=== PATIENT | male | born 1995 | race Caucasian/White ===

== ENCOUNTER 2019-02-18 19:52 | Emergency (ER) | payer SELFPAY ==
[~2019-02-18] VITALS: Ht 165.1 cm; Wt 60.5 kg
[2019-02-18 19:57] VITALS: Ht 165.1 cm; Wt 60.5 kg
[2019-02-18] MEDS ORDERED: SOD CHLORIDE 0.9% 1,000 ML IV STA (21:01)
[2019-02-18] MEDS ORDERED: ONDANSETRON 4 MG INJ IV STA (21:01)
[2019-02-18] MEDS ORDERED: HYDROmorphONE 1 MG/ML SYG IV STA (21:01)
[2019-02-18] MEDS ORDERED: HYDROmorphONE 2 MG/ML SYG IV STA (22:18)
[2019-02-18] MEDS ORDERED: IBUP-1542 PO (22:20)
[2019-02-18] MEDS ORDERED: NALO4SPR NS (22:20)
[2019-02-18] MEDS ORDERED: HYDR-3980 PO (22:20)
--- NOTE | 2019-02-18 22:33 | ERD ---
ER Documentation Chief Complaint Chief Complaint SICKLE CELL CRISIS X'S 4 DAYS HPI Patient is a 24-year-old male with sickle cell disease who presents with sickle cell pain. He said that it started 2 to 3 days ago but was worse today. He has chest pain and vomiting which is his usual sickle cell pain. He is visiting from [place]. He said that he usually gets fluids, Dilaudid, and Zofran. Upon review of old medical records this is the patient's first visit to the emergency department. ROS All systems reviewed and are negative except as per history of present illness. Medications Home Meds Active Scripts Naloxone HCl nasal spray (Narcan 4 mg/0.1 mL nasal) 4 Mg [place], 4 MG NS .Q2-3MIN for OPIOID OVERDOSE, #2 SPRAY 0 Refills [place] 0.1 mL into one nostril. 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 Neck: Full range of motion. No meningismus. Resp: Clear to auscultation bilaterally Cardio: Regular rate and rhythm, no murmurs Abd: Soft, non tender, non distended. Normal bowel sounds Skin: No petechiae or rashes Back: No midline or flank tenderness Ext: No cyanosis, or edema Neur: Awake and alert Psych: Normal Mood and Affect Result Diagram: 02/18/19211602/18/192116 Results 24 hrs Laboratory Tests Test 02/18/19 21:17 White Blood Count 4.8 10^3/ul Red Blood Count 4.94 10^6/ul Hemoglobin 11.9 g/dl Hematocrit 35.6 % Mean Corpuscular Volume 72.1 fl Mean Corpuscular Hemoglobin 24.1 pg Mean Corpuscular Hemoglobin Concent 33.4 g/dl Red Cell Distribution Width 17.1 % Platelet Count 156 10^3/UL Mean Platelet Volume 10.8 fl Immature Granulocytes % 0.200 % Neutrophils % 55.5 % Lymphocytes % 32.6 % Monocytes % 8.6 % Eosinophils % 2.3 % Basophils % 0.8 % Nucleated Red Blood Cells % 0.0 /100WBC Immature Granulocytes # 0.010 10^3/ul Neutrophils # 2.7 10^3/ul Lymphocytes # 1.6 10^3/ul Monocytes # 0.4 10^3/ul Eosinophils # 0.1 10^3/ul Basophils # 0.0 10^3/ul Nucleated Red Blood Cells # 0.0 10^3/ul Absolute Reticulocyte Count 0.066 X10^6 Percent Reticulocyte Count 1.3 % Sodium Level 141 mmol/L Potassium Level 4.1 mmol/L Chloride Level 107 mmol/L Carbon Dioxide Level 26 mmol/L Anion Gap 8 Blood Urea Nitrogen 12 mg/dl Creatinine 1.19 mg/dl Est Glomerular Filtrat Rate mL/min > 60 mL/min Glucose Level 89 mg/dl Calcium Level 10.2 mg/dl Current Medications Medications Dose Sig/Radha Start Time Status Last (Trade) Ordered Route PRN Stop Time Admin Dose Reason Admin Sodium 1,000 ml @ Q1H STAT 02/18/19 DC 02/18/19 Chloride 1,000 mls/hr IV 21:01 21:19 02/18/19 22:00 1 mg ONCE STAT 02/18/19 DC 02/18/19 Hydromorphone IV 21: 21:19 HCl 02/18/19 21:08 (Dilaudid) Ondansetron 4 mg ONCE STAT 02/18/19 DC 02/18/19 HCl (Zofran IV 21: 21:19 Inj) 02/18/19 21:08 1 mg ONCE STAT 02/18/19 DC Hydromorphone IV 22:18 HCl 02/18/19 22:20 (Dilaudid) Procedures/MDM EKG read by me: Rate/Rhythm: Regular rate and rhythm at a normal rate Intervals: Normal Impression: No evidence of ischemia or arrhythmia Chest X-ray 1V Interpreted by me: Soft Tissue: No acute abnormalities Bones: No acute abnormalities Mediastinum/Cardiac Silhouette/Lungs: No acute abnormalities Patient is a 24-year-old male with sickle cell disease who presents with acute sickle cell pain crisis. The patient was given 2 doses of Dilaudid, normal saline 1 L bolus, and Zofran and feels better. The patient will be discharged with ibuprofen, Cost, and Narcan. The patient went to follow-up with the local clinics for further care. He can return for any worsening symptoms. I doubt acute coronary syndrome, pneumonia, pneumothorax, pulmonary embolism, or aortic dissection. Departure Diagnosis: Primary Impression: Sickle cell pain crisis Additional Impression: Pain Condition: Fair Patient Instructions: Sickle Cell Pain Crisis Referrals: COMMUNITY CLINICS YOU HAVE RECEIVED A MEDICAL SCREENING EXAM AND THE RESULTS INDICATE THAT YOU DO NOT HAVE A CONDITION THAT REQUIRES URGENT TREATMENT IN THE EMERGENCY DEPARTMENT. FURTHER EVALUATION AND TREATMENT OF YOUR CONDITION CAN WAIT UNTIL YOU ARE SEEN IN YOUR DOCTORS OFFICE WITHIN THE NEXT 1-2 DAYS. IT IS YOUR RESPONSIBILITY TO MAKE AN APPOINTMENT FOR FOL-UP CARE. IF YOU HAVE A PRIMARY DOCTOR --you should call your primary doctor and schedule an appointment IF YOU DO NOT HAVE A PRIMARY DOCTOR YOU CAN CALL OUR PHYSICIAN REFERRAL HOTLINE AT IF YOU CAN NOT AFFORD TO SEE A PHYSICIAN YOU CAN CHOSE FROM THE FOLLOWING [facility] [address] [facility] [address] [facility] [address] [facility] [facility] [address] [facility] [address] [facility]. [facility]. [address] Additional Instructions: Call your primary care doctor TOMORROW for an appointment during the next 1 WEEK.Tell the litigation secretary that you were referred from this facility.See the doctor sooner or return here if your condition worsens before your appointment time. OWEN MIGUEL MD Feb 18, 2019 22:33
[2019-02-18 23:09] VITALS: BP 119/75; PULSE 88; RESP 18
== END 2019-02-18 23:20 | disposition home or self-care (01) ==
LOC: E/R 19:52
DX: D57.00 Hb-SS disease with crisis, unspecified (principal); R07.9 Chest pain, unspecified
CPT/HCPCS: 36415; 71045; 80048; 85025; 85045; 85660; 93005; 96374; 96375; 96376; 99285; J1170; J7030; J2405

== ENCOUNTER 2019-02-23 08:55 | Emergency (ER) | payer SELFPAY ==
[~2019-02-23] VITALS: Wt 60.9 kg
[~2019-02-23 08:55] MED LIST: HYDR-3980 PO; IBUP-1542 PO; NALO4SPR NS
[2019-02-23] MEDS ORDERED: KETOROLAC 15 MG INJ IV STA (10:05)
[2019-02-23] MEDS ORDERED: ONDANSETRON 4 MG INJ IV STA (10:05)
[2019-02-23] MEDS ORDERED: HYDROmorphONE 0.5 MG/0.5 ML SYG IV STA ×2 (10:05→11:06)
[2019-02-23] MEDS ORDERED: SOD CHLORIDE 0.9% 1,000 ML IV ONE (10:30)
--- NOTE | 2019-02-23 11:05 | ERD ---
ER Documentation Chief Complaint Chief Complaint GENERALIZED PAIN, HX SICKLE CELL, OUT OF [place] HPI This is a 24-year-old male with a past medical history of reported sickle cell disease who is presenting with concerns of an acute sickle cell pain crisis. The patient reports recently moving here from [place]. He is in the process of finding primary care follow-up, but he has not yet established hematology care. The patient reports 1 to 2 days of worsening full body pain. He endorses an aching and gnawing sensation throughout his whole body including his chest. He reports cough with nausea and vomiting clear phlegm. It is nonbloody and non-bilious. The patient reports that he usually gets IV fluids, Dilaudid and Zofran. The patient denies feeling sick recently. The patient denies fever or chills. The patient has had no headache or vision changes. The patient does not endorse neck or back pain. The patient denies lightheadedness or dizziness. The patient has had no trouble breathing. The patient denies abdominal pain. The patient denies changes to bowel movements or urination. The patient has had no focal deficits. The patient has had no weakness or numbness or tingling to the face or extremities. ROS All systems reviewed and are negative except as per history of present illness. Medications Home Meds Discontinued Scripts Naloxone HCl nasal spray (Narcan 4 mg/0.1 mL nasal) 4 Mg [place], 4 MG NS .Q2-3MIN for OPIOID OVERDOSE, #2 SPRAY 0 Refills [place] 0.1 mL into one nostril. 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 Neck: Full range of motion. No meningismus. Resp: Clear to auscultation bilaterally Cardio: Regular rate and rhythm, no murmurs Abd: Soft, non tender, non distended. Normal bowel sounds Skin: No petechiae or rashes Back: No midline or flank tenderness Ext: No cyanosis, or edema Neur: Awake and alert Psych: Normal Mood and Affect Result Diagram: 02/23/19 0940 02/23/19 0939 Results 24 hrs Laboratory Tests Test 02/23/19 09:39 02/23/19 09:40 Sodium Level 143 mmol/L Potassium Level 4.1 mmol/L Chloride Level 109 mmol/L Carbon Dioxide Level 26 mmol/L Anion Gap 8 Blood Urea Nitrogen 7 mg/dl Creatinine 0.94 mg/dl Est Glomerular Filtrat Rate mL/min > 60 mL/min Glucose Level 98 mg/dl Calcium Level 9.9 mg/dl White Blood Count 3.9 10^3/ul Red Blood Count 4.79 10^6/ul Hemoglobin 11.6 g/dl Hematocrit 34.8 % Mean Corpuscular Volume 72.7 fl Mean Corpuscular Hemoglobin 24.2 pg Mean Corpuscular Hemoglobin Concent 33.3 g/dl Red Cell Distribution Width 16.9 % Platelet Count 165 10^3/UL Mean Platelet Volume 11.1 fl Immature Granulocytes % 0.300 % Neutrophils % 57.8 % Lymphocytes % 33.2 % Monocytes % 6.7 % Eosinophils % 1.5 % Basophils % 0.5 % Nucleated Red Blood Cells % 0.0 /100WBC Immature Granulocytes # 0.010 10^3/ul Neutrophils # 2.2 10^3/ul Lymphocytes # 1.3 10^3/ul Monocytes # 0.3 10^3/ul Eosinophils # 0.1 10^3/ul Basophils # 0.0 10^3/ul Nucleated Red Blood Cells # 0.0 10^3/ul Absolute Reticulocyte Count 0.081 X10^6 Percent Reticulocyte Count 1.7 % Current Medications Medications Dose Sig/Radha Start Time Status Last (Trade) Ordered Route PRN Stop Time Admin Dose Reason Admin Sodium 1,000 ml @ Q1H ONCE 02/23/19 DC 02/23/19 Chloride 1,000 mls/hr IV 10:30 02/23/19 10:09 11:29 Ketorolac 15 mg ONCE STAT 02/23/19 DC 02/23/19 Tromethamine IV 10:05 02/23/19 10:09 (Toradol) 10:06 1 mg ONCE STAT 02/23/19 DC 02/23/19 Hydromorphone IV 10:05 02/23/19 10:10 HCl 10:06 (Dilaudid) Ondansetron 4 mg ONCE STAT 02/23/19 DC 02/23/19 HCl (Zofran IV 10:05 02/23/19 10:09 Inj) 10:06 1 mg ONCE STAT 02/23/19 DC 02/23/19 Hydromorphone IV 11:06 02/23/19 11:11 HCl 11:07 (Dilaudid) Procedures/MDM MDM The patient's presentation warrants further investigation. Previous medical records, if available, were reviewed. LABS The patient's laboratory testing was obtained and reviewed. No emergent treatment was required unless described below. CBC: No E/o systemic infection or thrombocytopenia. Mild leukopenia, not emergent. Microcytic anemia, not emergent. Mildly elevated reticulocyte count. Chemistry: No E/o severe acidosis or alkalosis or renal failure or diabetic ketoacidosis EKG EKG read by me: Rate/Rhythm: Sinus rhythm with a sinus arrhythmia. Intervals: Normal [place]: Normal Impression: No evidence of acute ischemia. Sinus arrhythmia. IMAGING CXR COMPARISON: 02/18/2019 FINDINGS: Cardiac/vascular structures: Normal cardiomediastinal silhouette. Pulmonary: Lungs are clear. No pleural effusion. No evidence of pneumothorax. Osseous structures: Normal Soft tissues: Normal IMPRESSION: No acute cardiopulmonary disease. Electronically viewed and signed by Marina Reyes Physician on 02/23/2019 09:56 TREATMENT/DISPOSITION The patient presents for reported sickle cell crisis. The patient's reticulocyt e count is low for a patient with sickle cell crisis pain. I do not see any evidence of acute chest syndrome. As the patient received narcotics within the last week, but he was only given six 10 mg tablets of [place]. I do feel that the patient would benefit from a short course again. The patient was treated with IV fluids, Toradol, 2 doses of Dilaudid and Zofran with some improvement of his symptoms. DISCHARGE Upon reevaluation of the patient, symptoms have improved. No emergent diagnoses were identified. At this time, I feel that the patient stable for discharge. The patient was instructed to follow-up with a primary care physician in 1-3 days. The patient will be given strict precautions with which to return to the emergency department. The patient understands the need to follow-up with a primary care physician. He understands that we cannot continue to prescribe opiates from the emergency department. The patient reports being out of his hydroxyurea and folic acid. He will be given prescriptions. Prescriptions: Folic acid, hydroxyurea, oxycodone. The patient's blood pressure was elevated at greater than 120/80 while in the emergency department. The patient was otherwise stable with no evidence of hypertensive urgency or emergency. The patient does not require admission for blood pressure control. I have discussed with the patient the risks of hypertension. I have instructed the patient to return to the ER for any new or worsening symptoms including chest pain, shortness of breath, headache, blurred vision, confusion, nausea, vomiting or LOC. I have advised the patient to follow up with the primary care physician for outpatient monitoring and treatment for hypertension in 1-3 days. Disclaimer: Inadvertent spelling and grammatical errors are likely due to EHR/dictation software use and do not reflect on the overall quality of patient care. Note that the electronic time recorded on this note does not necessarily reflect the actual time of the patient encounter. Departure Diagnosis: Primary Impression: Sickle cell pain crisis Additional Impressions: Leukopenia Leukopenia type: unspecified Qualified Codes: D72.819 - Decreased white blood cell count, unspecified Normocytic anemia Condition: Stable Patient Instructions: Sickle Cell Anemia, Sickle Cell Pain Crisis Additional Instructions: Thank you for for coming to [facility] for your care today. Please ask your nurse or provider if you have questions about your care today and do not leave until all your questions have been answered. Please use any medications given as directed and follow-up with your doctor (or the doctor you were referred to) in the next 1-3 days. If you do not have a primary care doctor you may follow up at the [facility] or [facility] (listed below). You may also use motrin and tylenol as needed for fever and/or pain unless instructed otherwise by your provider or nurse. Indications for more urgent follow-up have been discussed, but you may return to the Emergency Department at ANY time for any worrisome or worsening symptoms. If you have abdominal pain, please know that no test or exam you received is perfect and you should follow up within 8 hours for continued pain. If you had any imaging studies today, such as an X-Ray or CT Scan, these studies will be reviewed later by a radiologist. You will be called if there are impo rtant findings that were not identified today, so make sure the contact information you provided at registration is correct. If you received any narcotic pain control medicine today, such as Vicodin, Morphine or Dilaudid, your coordination and judgment may be affected for a number of hours. Please do not drive or operate heavy machinery, and you may want someone to assist you at home. If you were given a prescription for narcotic medication, be aware that it is very addictive- use sparingly and only if necessary. PLEASE SEEK FURTHER EVALUATION AND MANAGEMENT AT YOUR DOCTORS OFFICE WITHIN THE NEXT 1-3 DAYS. IT IS YOUR RESPONSIBILITY TO MAKE AN APPOINTMENT FOR FOLOW-UP CARE. IF YOU HAVE A PRIMARY DOCTOR, PLEASE CALL THEIR OFFICE TO SCHEDULE AN APPOINTMENT FOR FOLLOW UP. IF YOU DO NOT HAVE A PRIMARY DOCTOR YOU CAN CALL OUR PHYSICIAN REFERRAL HOTLINE AT IF YOU CAN NOT AFFORD TO SEE A PHYSICIAN YOU CAN CHOSE FROM THE FOLLOWING [facility] CLINICS: [facility] [address] [facility]. [facility] [address] [facility]. [facility] [address] [facility]. [facility] [address] [facility]. [facility] [address] [facility]. [facility]. [address] MD February 23, 2019 11:04
[2019-02-23] MEDS ORDERED: FOLI0.4T2 PO (11:52)
[2019-02-23] MEDS ORDERED: OXYC5CAP17 PO (11:52)
[2019-02-23] MEDS ORDERED: HYDR500C3 PO (11:52)
[2019-02-23 12:09] VITALS: BP 133/99; PULSE 76; RESP 18
== END 2019-02-23 12:11 | disposition home or self-care (01) ==
LOC: E/R 08:55
DX: D57.00 Hb-SS disease with crisis, unspecified (principal); D72.819 Decreased white blood cell count, unspecified; D64.9 Anemia, unspecified; R07.9 Chest pain, unspecified
CPT/HCPCS: 71045; 80048; 85025; 85045; 96374; 96375; 96376; 99284; J1170; J1885; J2405; J7030

== ENCOUNTER 2019-03-09 09:48 | Emergency (ER) | payer SELFPAY ==
[~2019-03-09] VITALS: Wt 52.0 kg
[~2019-03-09 09:48] MED LIST changes: +FOLI0.4T2 PO; -HYDR-3980 PO; +HYDR500C3 PO; -IBUP-1542 PO; -NALO4SPR NS; +OXYC5CAP17 PO
[2019-03-09] MEDS ORDERED: HYDROmorphONE 0.5 MG/0.5 ML SYG IV STA ×2 (10:01→10:43)
[2019-03-09] MEDS ORDERED: ONDANSETRON 4 MG INJ IV STA (10:01)
[2019-03-09] MEDS ORDERED: SOD CHLORIDE 0.9% 1,000 ML IV STA (10:01)
--- NOTE | 2019-03-09 10:16 | ERD ---
ER Documentation Chief Complaint Chief Complaint HX SICKLE CELL, HAS BODY PAIN HPI This is a 24-year-old male with a history of sickle cell who presents to the emergency room for evaluation of sickle cell pain. This patient states that the cold weather has caused him pain in his joints. The patient states that he recently moved to the [facility] from [place] and is not have a primary care physician. The patient denies any fevers, chills, nausea or vomiting. He states OxyContin helps his symptoms sometimes however IV Dilaudid helps when he has flareups. The patient denies any sick contacts or recent travel ROS All systems reviewed and are negative except as per history of present illness. 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 Neck: Full range of motion. No meningismus. Resp: Clear to auscultation bilaterally Cardio: Regular rate and rhythm, no murmurs Abd: Soft, non tender, non distended. Normal bowel sounds Skin: No petechiae or rashes Back: No midline or flank tenderness Ext: No cyanosis, or edema Neur: Awake and alert Psych: Normal Mood and Affect Results 24 hrs Current Medications Medications Dose Sig/Radha Start Time Status Last (Trade) Ordered Route PRN Stop Time Admin Dose Reason Admin 1 mg ONCE STAT 03/09/19 DC 03/09/19 Hydromorphone IV 10:01 10:13 HCl 03/09/19 10:02 (Dilaudid) Sodium 1,000 ml @ Q1H STAT 03/09/19 03/09/19 Chloride 1,000 mls/hr IV 10:01 10:14 03/09/19 11:00 Ondansetron 4 mg ONCE STAT 03/09/19 DC 03/09/19 HCl (Zofran IV 10: 10:14 Inj) 03/09/19 10:02 Procedures/MDM This 24-year-old male presents to the emergency room for evaluation of sickle cell pain and body aches. I have reviewed this patient's medical records and it appears this is his third visit to the emergency room in the past 3 weeks for similar complaints. The patient has not establish care with primary care physician. The patient is not hypoxic, no chest pain, I doubt acute chest syndrome. The patient was given IV fluids and IV analgesia. He will be discharged at this time with a prescription for p.o. Phenergan and [place]. Departure Diagnosis: Primary Impression: Sickle cell anemia with pain Condition: Stable DIANE TEJADA DO March 09, 2019 10:16
[2019-03-09] MEDS ORDERED: HYDR-4011 PO (10:46)
[2019-03-09] MEDS ORDERED: PROM25TA14 PO (10:46)
[2019-03-09 11:45] VITALS: BP 110/68; PULSE 64; RESP 18
== END 2019-03-09 11:45 | disposition home or self-care (01) ==
LOC: E/R 09:48
DX: D57.1 Sickle-cell disease without crisis (principal)
CPT/HCPCS: 96374; 96375; 96376; 99284; J1170; J2405; J7030

== ENCOUNTER 2019-03-13 07:51 | Emergency (ER) | payer SELFPAY ==
[~2019-03-13] VITALS: Wt 59.0 kg
[~2019-03-13 07:51] MED LIST changes: +HYDR-4011 PO; +PROM25TA14 PO
[2019-03-13] MEDS ORDERED: SOD CHLORIDE 0.9% 1,000 ML IV STA (08:21)
[2019-03-13] MEDS ORDERED: HYDROmorphONE 1 MG/ML SYG IV STA ×3 (08:21→10:08)
[2019-03-13] MEDS ORDERED: ONDANSETRON 4 MG INJ IV STA ×3 (08:21→10:08)
--- NOTE | 2019-03-13 09:48 | ERD ---
ER Documentation Chief Complaint Chief Complaint BODY PAIN, HAS SICKLE CELL HPI This is a 24-year-old male who has a history of sickle cell disease. He is here for sickle cell pain crisis. He says he has whole body pain. He was seen here twice this month already and once in January. This is his fourth visit. He said he is ran out of his medication. He says he has nausea vomiting but no abdominal pain. He says he needs some fluids and pain medication. He was given Colcord on his last visit but it was not strong enough. He says he thinks he is having a crisis because of the weather changes ROS All systems reviewed and are negative except as per history of present illness. Medications Home Meds Active Scripts Promethazine Hcl* (Phenergan*) 25 Mg Tablet, 25 MG PO Q6 PRN for NAUSEA AND/OR VOMITING, #1 BOTTLE Prov:DIANE TEJADA DO 03/09/19 Hydrocodone/Acetaminophen (Colcord 5-325 Tablet) 1 Each Tablet, 1 TAB PO Q6H PRN for PAIN, #5 TAB Prov:DIANE TEJADA DO 03/09/19 Oxycodone Hcl* (IR) (Oxycodone Hcl*) 5 Mg Capsule, 5 MG PO Q8 PRN for PAIN, #10 CAP Prov:CHRISTY DE LA PAZ MD 02/23/19 Hydroxyurea* (Hydroxyurea*) 500 Mg Capsule, 500 MG PO BID for 30 Days, CAP Prov:CHRISTY DE LA PAZ MD 02/23/19 Folic Acid* (Folic Acid*) 0.4 Mg Tablet, 0.4 MG PO DAILY, #30 TAB Prov:CHRISTY DE LA PAZ MD 02/23/19 Allergies Allergies: Coded Allergies: prochlorperazine (Verified Allergy, Intermediate, hallucinations, 03/13/19) PMhx/Soc Medical and Surgical Hx: pt denies Surgical Hx History of Surgery: No Anesthesia Reaction: No Hx Neurological Disorder: No Hx Respiratory Disorders: No 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) Hx Psychiatric Problems: No Hx Miscellaneous Medical Probl: No Hx Alcohol Use: No Hx Substance Use: Yes (MARIJUANA) Hx Tobacco Use: No Smoking Status: Never smoker FmHx Family History: No coronary disease Physical Exam Vitals Vital Signs Date Temp Pulse Resp B/P (MAP) Pulse Ox O2 O2 Flow FiO2 Time Delivery Rate 03/13/19 87 16 97/62 (74) 99 Room Air 08:00 03/13/19 99.3 82 18 140/79 99 07:53 (99) Physical Exam Const: Well-developed, well-nourished Head: Atraumatic, normocephalic Eyes: Normal Conjunctiva, PERRLA, EOMI, normal sclera, no nystagmus ENT: Normal External Ears, Nose and Mouth, moist mucus membranes. Neck: Full range of motion. No meningismus, no lymphadenopathy. Resp: Clear to auscultation bilaterally, no wheezing, rhonchi, rales Cardio: Regular rate and rhythm, no murmurs, S1 S2 present Abd: Soft, non tender x 4, non distended. Normal bowel sounds, no guarding or rebound, no pulsitile abdominal masses or bruits Skin: No petechiae or rashes, no ecchymosis , no maculopapular rash Back: No midline or flank tenderness Ext: No cyanosis, or edema, FROM x 4, normal inspection, neurovascularly intact x 4 Neur: Awake and alert, STR 5/5 x 4, sensation intact x 4, no focal findings, cerebellum intact Psych: Normal Mood and Affect Results 24 hrs Current Medications Medications Dose Sig/Radha Start Time Status Last (Trade) Ordered Route PRN Stop Time Admin Dose Reason Admin Sodium 1,000 ml @ Q1H STAT 03/13/19 DC 03/13/19 Chloride 1,000 mls/hr IV 08:21 08:32 03/13/19 09:20 1 mg ONCE STAT 03/13/19 DC 03/13/19 Hydromorphone IV 08:21 08:32 HCl 03/13/19 08:22 (Dilaudid) Ondansetron 4 mg ONCE STAT 03/13/19 DC 03/13/19 HCl (Zofran IV 08:21 08:32 Inj) 03/13/19 08:22 1 mg ONCE STAT 03/13/19 DC 03/13/19 Hydromorphone IV 09:10 09:20 HCl 03/13/19 09:12 (Dilaudid) Ondansetron 4 mg ONCE STAT 03/13/19 DC HCl (Zofran IV 09:10 Inj) 03/13/19 09:12 Procedures/[facility] Reviewed the patient's old medical records. His reticulocyte count was not elevated and I am not sure if he is having a pain crisis it could be drug- seeking behavior versus nonreactive recheck count. Given some fluids oxygen and pain medication discharge home. He said he is getting a doctor soon he is from [facility] Diagnosis: Primary Impression: Sickle cell crisis Condition: Stable CATRACHITA LYMAN DO March 13, 2019 09:48
[2019-03-13] MEDS ORDERED: PROM6.256 PO (09:50)
[2019-03-13] MEDS ORDERED: OXYC5CAP17 PO (09:50)
[2019-03-13 10:56] VITALS: BP 125/83; PULSE 80; RESP 12
== END 2019-03-13 10:56 | disposition home or self-care (01) ==
LOC: E/R 07:51
DX: D57.00 Hb-SS disease with crisis, unspecified (principal)
CPT/HCPCS: 96374; 96375; 96376; 99284; J1170; J2405; J7030

== ENCOUNTER 2019-03-21 11:09 | Emergency (ER) | payer SELFPAY ==
[~2019-03-21] VITALS: Ht 160 cm; Wt 62.2 kg
[~2019-03-21 11:09] MED LIST changes: +PROM6.256 PO
[2019-03-21 11:13] VITALS: Ht 160 cm; Wt 62.2 kg
[2019-03-21] MEDS ORDERED: HYDROmorphONE 1 MG/ML SYG IV STA ×2 (11:59→13:21)
[2019-03-21] MEDS ORDERED: ONDANSETRON 4 MG INJ IV STA ×2 (11:59→13:21)
[2019-03-21] MEDS ORDERED: DIPHENHYDRAMINE 50 MG INJ IV ONE (12:00)
--- NOTE | 2019-03-21 13:28 | ERD ---
ER Documentation Chief Complaint Chief Complaint sickle cell c/o total body ache HPI This is a 24-year-old male with history of sickle cell disease. The patient presents to the emergency department complaining of diffuse myalgias. He states the pain began in his bilateral knee joints and extended to the elbows and shoulders. He states this is similar nature to his previous vaso-occlusive crisis. The patient states he had no fevers or shaking or chills but he denies any chest pain. He denies a productive or nonproductive cough. He said no fevers or shaking or chills. He has no shortness of breath. ROS All systems reviewed and are negative except as per history of present illness. Medications Home Meds Active Scripts Promethazine Hcl* (Phenergan* Liq) 6.25 Mg/5 Ml Syrup, 12.5 MG PO Q6H PRN for NAUSEA, #100 ML Prov:CATRACHITA LYMAN DO 03/13/19 Promethazine Hcl* (Phenergan*) 25 Mg Tablet, 25 MG PO Q6 PRN for NAUSEA AND/OR VOMITING, #1 BOTTLE Prov:DIANE TEJADA DO 03/09/19 Hydroxyurea* (Hydroxyurea*) 500 Mg Capsule, 500 MG PO BID for 30 Days, CAP Prov:CHRISTY DE LA PAZ MD 02/23/19 Folic Acid* (Folic Acid*) 0.4 Mg Tablet, 0.4 MG PO DAILY, #30 TAB Prov:CHRISTY DE LA PAZ MD 02/23/19 Discontinued Scripts Oxycodone Hcl* (IR) (Oxycodone Hcl*) 5 Mg Capsule, 5 MG PO Q4 PRN for PAIN, #16 TAB Prov:CATRACHITA LYMAN DO 03/13/19 Hydrocodone/Acetaminophen (Buchanan 5-325 Tablet) 1 Each Tablet, 1 TAB PO Q6H PRN for PAIN, #5 TAB Prov:DIANE TEJADA DO 03/09/19 Oxycodone Hcl* (IR) (Oxycodone Hcl*) 5 Mg Capsule, 5 MG PO Q8 PRN for PAIN, #10 CAP Prov:CHRISTY DE LA PAZ MD 02/23/19 Allergies Allergies: Coded Allergies: prochlorperazine (Verified Allergy, Intermediate, hallucinations, 03/21/19) PMhx/Soc History of Surgery: No Anesthesia Reaction: No Hx Neurological Disorder: No Hx Respiratory Disorders: No 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 Well-nourished. HEENT:Normocephalic. Atraumatic.Pupils were equal round reactive to light. Moist mucous membranes.No tonsillar exudates. Respiratory: Not using accessory muscles of respiration.Lungs were clear to auscultation bilaterally. No rhonchi. No rales. No wheezing. Cardiovascular: Regular rate regular rhythm.No murmurs. No rubs were apprec iated.S1, S2 normal. Distal pulses are palpable 2+ bilaterally. Muscle skeletal: Full range of motion of both the upper and lower extremities bilaterally.Normal muscle tone.No assymetrical calf tenderness or swelling. Skin: No petechia, no purpura. No lesions on the palms or the soles of the feet. No maculopapular rash. NEURO: Patient was alert, awake, orientated x3.No facial droop. Gait observed and normal with no ataxia.Speech had regular rate and rhythm. No focal neurological deficits. Result Diagram: 03/21/19 1205 03/21/19 1205 Results 24 hrs Laboratory Tests Test 03/21/19 12:05 White Blood Count 4.5 10^3/ul Red Blood Count 4.86 10^6/ul Hemoglobin 11.8 g/dl Hematocrit 35.3 % Mean Corpuscular Volume 72.6 fl Mean Corpuscular Hemoglobin 24.3 pg Mean Corpuscular Hemoglobin Concent 33.4 g/dl Red Cell Distribution Width 16.1 % Platelet Count 170 10^3/UL Mean Platelet Volume 10.6 fl Immature Granulocytes % 0.200 % Neutrophils % 59.0 % Lymphocytes % 31.6 % Monocytes % 6.9 % Eosinophils % 1.6 % Basophils % 0.7 % Nucleated Red Blood Cells % 0.0 /100WBC Immature Granulocytes # 0.010 10^3/ul Neutrophils # 2.7 10^3/ul Lymphocytes # 1.4 10^3/ul Monocytes # 0.3 10^3/ul Eosinophils # 0.1 10^3/ul Basophils # 0.0 10^3/ul Nucleated Red Blood Cells # 0.0 10^3/ul Absolute Reticulocyte Count 0.107 X10^6 Percent Reticulocyte Count 2.2 % Sodium Level 141 mmol/L Potassium Level 4.0 mmol/L Chloride Level 109 mmol/L Carbon Dioxide Level 25 mmol/L Anion Gap 7 Blood Urea Nitrogen 5 mg/dl Creatinine 0.90 mg/dl Est Glomerular Filtrat Rate mL/min > 60 mL/min Glucose Level 102 mg/dl Calcium Level 9.7 mg/dl Total Bilirubin 1.6 mg/dl Direct Bilirubin 0.00 mg/dl Indirect Bilirubin 1.6 mg/dl Aspartate Amino Transf (AST/SGOT) 26 IU/L Alanine Aminotransferase (ALT/SGPT) 27 IU/L Alkaline Phosphatase 75 IU/L Total Protein 7.7 g/dl Albumin 4.5 g/dl Globulin 3.20 g/dl Albumin/Globulin Ratio 1.40 Current Medications Medications Dose Sig/Radha Start Time Status Last (Trade) Ordered Route PRN Stop Time Admin Dose Reason Admin 1 mg ONCE STAT 03/21/19 DC 03/21/19 Hydromorphone IV 11:59 12:14 HCl 03/21/19 12:03 (Dilaudid) Ondansetron 4 mg ONCE STAT 03/21/19 DC 03/21/19 HCl (Zofran IV 11:59 12:14 Inj) 03/21/19 12:03 50 mg ONCE ONCE 03/21/19 DC 03/21/19 Diphenhydrami IV 12:00 12:14 ne HCl 03/21/19 12:03 (Benadryl) 1 mg ONCE STAT 03/21/19 DC 03/21/19 Hydromorphone IV 13:21 13:36 HCl 03/21/19 13:23 (Dilaudid) Ondansetron 4 mg ONCE STAT 03/21/19 DC 03/21/19 HCl (Zofran IV 13:21 13:31 Inj) 03/21/19 13:23 Procedures/MDM This is a 24-year-old male. He has a history of sickle cell disease. I reviewed the previous records and the patient was here 1 week ago for sickle cell crisis. The patient no severe left leg abnormalities and reticulocyte count was 2.2. Patient received IV fluids analgesic medication his pain improved. He did require 2 doses of opiates with resolution of his vaso- occlusive crisis. The patient did not appear to have an acute chest syndrome. The patient was discharged home in fair condition. They were instructed to return to the emergency department at any time if there was any worsening of their condition. The patient stated they would follow up with their PCP in the next 24-48 hours to initiate a suitable medication regimen under the care of their PCP as well as to allow their PCP to monitor any drug reactions. The patient was discharged home with prescriptions after they gave informed consent to the new medication. They were also fully informed by myself on the adverse effects and adverse drug interactions in order to provide adequate safeguards to prevent possible adverse reactions to medications. Please note that the patient was requesting a medication refill for analgesic medication. I reviewed the [facility] database and the patient was given 16 tablets of 5 mg of oxycodone on March 16, 2019. On March 09, 2018 the patient was also given 5 tablets of Buchanan. On February 23, 2019 the patient was given 10 tablets of 5 mg of oxycodone and on February the patient was given 6 tablets of Buchanan. Therefore did not feel comfortable refilling the patient's medications and indicated he could get further doses by his pain specialist or primary care physician. Departure Diagnosis: Primary Impression: Vaso-occlusive sickle cell crisis Condition: JAMES Barone MD March 21, 2019 13:28
[2019-03-21 14:09] VITALS: BP 129/72; PULSE 71; RESP 20
== END 2019-03-21 14:10 | disposition home or self-care (01) ==
LOC: E/R 11:09
DX: D57.219 Sickle-cell/Hb-C disease with crisis, unspecified (principal)
CPT/HCPCS: 36415; 80053; 85025; 85045; 96374; 96375; 96376; 99284; J1170; J1200; J2405

== ENCOUNTER 2019-05-08 00:46 | Emergency (ER) | payer SELFPAY ==
[~2019-05-08] VITALS: Ht 165.1 cm; Wt 63.0 kg
[~2019-05-08 00:46] MED LIST changes: -HYDR-4011 PO; -OXYC5CAP17 PO
[2019-05-08 00:49] VITALS: Ht 165.1 cm; Wt 63.0 kg
[2019-05-08] MEDS ORDERED: ONDANSETRON 4 MG INJ IV STA ×2 (02:11→02:54)
[2019-05-08] MEDS ORDERED: SOD CHLORIDE 0.9% 1,000 ML IV STA ×2 (02:11→02:54)
[2019-05-08] MEDS ORDERED: HYDROmorphONE 1 MG/ML SYG IV STA ×2 (02:11→02:54)
--- NOTE | 2019-05-08 03:44 | ERD ---
ER Documentation Chief Complaint Chief Complaint generalize body pain x 2 hours, hx of sickle cell HPI This is a 25 mL generalized body pain for 2 hours. Patient has history of sickle cell disease. He said this is normal basic was present his arms his legs. Denies fevers or chills. Denies any other current complaints. ROS All systems reviewed and are negative except as per history of present illness. Medications Home Meds Active Scripts Naloxone HCl nasal spray (Narcan 4 mg/0.1 mL nasal) 4 Mg Mcgee, 4 MG NS .Q2-3MIN for OPIOID OVERDOSE, #2 SPRAY 0 Refills Mcgee 0.1 mL into one nostril. Repeat with second device into other nostril after 2-3 minutes if no or minimal response Prov:OLESYA DANIEL 05/08/19 Oxycodone Hcl* (IR) (Oxycodone Hcl*) 5 Mg Capsule, 5 MG PO Q4 PRN for PAIN, #20 TAB Prov:OLESYA DANIEL. 05/08/19 Promethazine Hcl* (Phenergan* Liq) 6.25 Mg/5 Ml Syrup, 12.5 MG PO Q6H PRN for NAUSEA, #100 ML Prov:CATRACHITA LYMAN DO 03/13/19 Promethazine Hcl* (Phenergan*) 25 Mg Tablet, 25 MG PO Q6 PRN for NAUSEA AND/OR VOMITING, #1 BOTTLE Prov:DIANE TEJADA DO 03/09/19 Hydroxyurea* (Hydroxyurea*) 500 Mg Capsule, 500 MG PO BID for 30 Days, CAP Prov:CHRISTY DE LA PAZ MD 02/23/19 Folic Acid* (Folic Acid*) 0.4 Mg Tablet, 0.4 MG PO DAILY, #30 TAB Prov:CHRISTY DE LA PAZ MD 02/23/19 Allergies Allergies: Coded Allergies: prochlorperazine (Verified Allergy, Intermediate, hallucinations, 03/21/19) PMhx/Soc History of Surgery: No Anesthesia Reaction: No Hx Neurological Disorder: No Hx Respiratory Disorders: No 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 Neck: Full range of motion. No meningismus. Resp: Clear to auscultation bilaterally Cardio: Regular rate and rhythm, no murmurs Abd: Soft, non tender, non distended. Normal bowel sounds Skin: No petechiae or rashes Back: No midline or flank tenderness Ext: No cyanosis, or edema Neur: Awake and alert Psych: Normal Mood and Affect Result Diagram: 05/08/19 0113 05/08/19 0113 Results 24 hrs Laboratory Tests Test 05/08/19 01:13 White Blood Count 3.8 10^3/ul Red Blood Count 4.84 10^6/ul Hemoglobin 12.1 g/dl Hematocrit 36.3 % Mean Corpuscular Volume 75.0 fl Mean Corpuscular Hemoglobin 25.0 pg Mean Corpuscular Hemoglobin Concent 33.3 g/dl Red Cell Distribution Width 14.5 % Platelet Count 171 10^3/UL Mean Platelet Volume 11.6 fl Immature Granulocytes % 0.300 % Neutrophils % 66.2 % Lymphocytes % 23.9 % Monocytes % 8.1 % Eosinophils % 1.0 % Basophils % 0.5 % Nucleated Red Blood Cells % 0.0 /100WBC Immature Granulocytes # 0.010 10^3/ul Neutrophils # 2.5 10^3/ul Lymphocytes # 0.9 10^3/ul Monocytes # 0.3 10^3/ul Eosinophils # 0.0 10^3/ul Basophils # 0.0 10^3/ul Nucleated Red Blood Cells # 0.0 10^3/ul Absolute Reticulocyte Count 0.078 X10^6 Percent Reticulocyte Count 1.6 % Sodium Level 141 mmol/L Potassium Level 3.5 mmol/L Chloride Level 106 mmol/L Carbon Dioxide Level 27 mmol/L Anion Gap 8 Blood Urea Nitrogen 7 mg/dl Creatinine 0.94 mg/dl Est Glomerular Filtrat Rate mL/min > 60 mL/min Glucose Level 115 mg/dl Calcium Level 9.7 mg/dl Total Bilirubin 1.5 mg/dl Direct Bilirubin 0.00 mg/dl Indirect Bilirubin 1.5 mg/dl Aspartate Amino Transf (AST/SGOT) 32 IU/L Alanine Aminotransferase (ALT/SGPT) 21 IU/L Alkaline Phosphatase 67 IU/L Total Protein 8.0 g/dl Albumin 4.6 g/dl Globulin 3.40 g/dl Albumin/Globulin Ratio 1.35 Current Medications Medications Dose Sig/Radha Start Time Status Last (Trade) Ordered Route PRN Stop Time Admin Dose Reason Admin Sodium 1,000 ml @ Q1H STAT 05/08/19 DC 05/08/19 Chloride 1,000 mls/hr IV 02:11 02:18 05/08/19 03:10 1 mg ONCE STAT 05/08/19 DC 05/08/19 Hydromorphone IV 02:11 02:19 HCl 05/08/19 02:12 (Dilaudid) Ondansetron 4 mg ONCE STAT 05/08/19 DC 05/08/19 HCl (Zofran IV 02:11 02:18 Inj) 05/08/19 02:12 Sodium 1,000 ml @ Q1H STAT 05/08/19 05/08/19 Chloride 1,000 mls/hr IV 02:54 03:20 05/08/19 03:53 1 mg ONCE STAT 05/08/19 DC 05/08/19 Hydromorphone IV 02:54 03:19 HCl 05/08/19 02:55 (Dilaudid) Ondansetron 4 mg ONCE STAT 05/08/19 DC 05/08/19 HCl (Zofran IV 02:54 03:19 Inj) 05/08/19 02:55 Procedures/MDM Medical decision make: 24-year-old male with vaso-occlusive crisis. Clinically stable for outpatient management for hydration. Patient be discharged home. Follow-up with PCP. Patient given a prescription for oxycodone and given prescription Narcan as well. Departure Diagnosis: Primary Impression: Vaso-occlusive sickle cell crisis Condition: Stable OLESYA DANIEL May 08, 2019 03:44
[2019-05-08] MEDS ORDERED: NALO4SPR NS (03:45)
[2019-05-08] MEDS ORDERED: OXYC5CAP17 PO (03:45)
[2019-05-08 04:19] VITALS: BP 123/80; PULSE 94; RESP 19
[2019-05-08] MEDS ORDERED: HYDROCODONE/APAP (10/325) TAB PO ONE (04:30)
== END 2019-05-08 04:22 | disposition home or self-care (01) ==
LOC: E/R 00:46
DX: D57.00 Hb-SS disease with crisis, unspecified (principal)
CPT/HCPCS: 36415; 80053; 85025; 85045; 86850; 86900; 86901; 96374; 96375; 96376; 99284; J1170; J2405; J7030